=== PATIENT | female | born 1975 | race Caucasian/White ===

== ENCOUNTER 2019-05-30 08:37 | Emergency (ER) | payer SELFPAY ==
[2019-05-30 08:49] VITALS: BP 121/78
--- NOTE | 2019-05-30 09:07 | ED Physician Documentation ---
History of Present Illness - Stated complaint Stated Complaint: ACCIDENTAL OD/DIZZY NAUSEA - Chief complaint Chief Complaint: Neuro - History obtained from History obtained from: Patient - History of Present Illness Timing: Today, How many hours ago (1) Pain level max: 0 Pain level now: 0 Improved by: nothing Worsened by: nothing - Additonal information Additional information: States took 600mg gabapentin and 8mg of tizanidine this am, normally takes 300mg of gabapentin and 4 mg of tizanidine. Feels anxious now. Review of Systems Constitutional: denies: Fever, Chills Nose: denies: Rhinorrhea / runny nose, Congestion Respiratory: denies: Cough GI: denies: Nausea, Vomiting, Diarrhea : denies: Dysuria Skin: denies: Rash Musculoskeletal: denies: Neck pain, Back pain Neurologic: denies: Headache PD PAST MEDICAL HISTORY - Past Medical History Past Medical History: Yes Neuro: Migraines Psych: Anxiety Musculoskeletal: Fibromyalgia, Chronic back pain - Present Medications Home Medications: Ambulatory Orders Medication Instructions Recorded Confirmed Albuterol Sulfate [Proair 90 mcg IH 05/30/19 Respiclick] Cephalexin [Keflex] 500 mg PO 05/30/19 05/30/19 Hydrochlorothiazide 12.5 mg PO 05/30/19 Ketorolac [Toradol] 10 mg PO Q6H 05/30/19 05/30/19 Loratadine 10 mg PO 05/30/19 Omeprazole 10 mg PO 05/30/19 Potassium Chloride 8 meq PO 05/30/19 - Allergies Allergies/Adverse Reactions: Allergies Allergy/AdvReac Type Severity Reaction Status Date / Time eletriptan [From Relpax] Allergy Anaphylaxis Verified 05/30/19 08:49 nitrofurantoin Allergy Unknown Verified 05/30/19 08:49 [From Macrobid] Sulfa (Sulfonamide Allergy Unknown Verified 05/30/19 08:49 Antibiotics) sumatriptan [From Imitrex] Allergy Unknown Verified 05/30/19 08:49 - Social History Does the pt smoke?: No Smoking Status: Never smoker PD ED PE NORMAL - Vitals Vital signs reviewed: Yes - General General: Alert and oriented X 3, No acute distress - HEENT HEENT: Moist mucous membranes - Neck Neck: Supple, no meningeal sign - Cardiac Cardiac: RRR, Strong equal pulses - Respiratory Respiratory: No respiratory distress, Clear bilaterally - Abdomen Abdomen: Soft, Non tender, Non distended - Derm Derm: Warm and dry - Extremities Extremities: No edema - Neuro Neuro: Alert and oriented X 3, painter helper sign 2-12 intact, No motor deficit, No sensory deficit, Normal speech Results - Vitals Vitals: Vital Signs - 24 hr 05/30/19 08:47 Temperature 36 C L Heart Rate 62 Respiratory 18 Rate Blood Pressure 121/78 O2 Saturation 99 Oxygen O2 Source Room air PD MEDICAL DECISION MAKING - ED course Complexity details: reviewed results, re-evaluated patient, considered differ ential, d/w patient ED course: Monitored in the ED with no significant side effects. Will follow up with her PCP for further care. Non-toxic doses of both medications. Patient and family counseled regarding signs and symptoms for which I believe and urgent re- evaluation would be necessary. Patient with good understanding of and agreement to plan and is comfortable going home at this time This document was made in part using voice recognition software. While efforts are made to proofread this document, sound alike and grammatical errors may occur. Departure - Departure Disposition: 01 Home, Self Care Clinical Impression: Accidental overdose Qualifiers: Encounter type: initial encounter Qualified Code(s): T50.901A - Poisoning by unspecified drugs, medicaments and biological substances, accidental (unintentional), initial encounter Condition: Good Instructions: ED Overdose Accidental Follow-Up: your,doctor in 1 week [Other] Comments: Rest today. Return if you worsen. Follow-up with your doctor for further evaluation and care.
== END 2019-05-30 10:18 | disposition home or self-care (01) ==
LOC: ED 08:37
DX: T42.6X1A Poisoning by other antiepileptic and sedative-hypnotic drugs, accidental (unintentional), initial encounter (principal); T42.8X1A Poisoning by antiparkinsonism drugs and other central muscle-tone depressants, accidental (unintentional), initial encounter
CPT/HCPCS: 99284

== ENCOUNTER 2019-07-19 11:45 | Emergency (ER) | payer MEDICAID ==
--- NOTE | 2019-07-19 12:20 | ED Physician Documentation ---
PD HPI LOWER EXT INJURY - Stated complaint Stated Complaint: FOOT PX/LEG SWELLING - Chief complaint Chief Complaint: Ext Problem - History obtained from History obtained from: Patient - History of Present Illness PD HPI LOW EXT INJURY LOCATION: Left (44-year-old woman with history of remote gastric bypass, kidney stone causing chronic renal insufficiency. She does not know her baseline renal function. Recently moved to the area from [place]. She always has some asymmetric pedal edema that is worse at the end of the day, left greater than right. She does not know why they are asymmetric. She does take hydrochlorothiazide for same. Over the last 3 days or so, she is had increasing left leg pain and swelling that seems to be focused at the bottom of the foot and hurts if she flattens her foot, but she also notices it up the calf into the medial side of the distal left thigh. No significant shortness of breath but she does have a mild dry cough. No chest pain. No history of DVT or PE. No recent car/plane travel, but she does commute about an hour by car for work each day, each way.) Review of Systems Constitutional: denies: Fever, Chills Cardiac: denies: Chest pain / pressure, Palpitations Respiratory: reports: Cough GI: denies: Abdominal Pain, Nausea, Vomiting PD PAST MEDICAL HISTORY - Past Medical History Past Medical History: No Cardiovascular: None Respiratory: None Neuro: Migraines GI: None GEAR TESTER: None : Kidney stones HEENT: None Psych: Anxiety Musculoskeletal: Fibromyalgia, Chronic back pain Derm: None - Past Surgical History Past Surgical History: No - Present Medications Home Medications: Ambulatory Orders Medication Instructions Recorded Confirmed Albuterol Sulfate [Proair 90 mcg IH 05/30/19 Respiclick] Cephalexin [Keflex] 500 mg PO 05/30/19 05/30/19 Hydrochlorothiazide 12.5 mg PO 05/30/19 Ketorolac [Toradol] 10 mg PO Q6H 05/30/19 05/30/19 Loratadine 10 mg PO 05/30/19 Omeprazole 10 mg PO 05/30/19 Potassium Chloride 8 meq PO 05/30/19 Furosemide [Lasix] 20 mg PO DAILY PRN #10 tablet 07/19/19 Potassium Chloride 10 meq PO DAILY PRN #10 tablet.er 07/19/19 - Allergies Allergies/Adverse Reactions: Allergies Allergy/AdvReac Type Severity Reaction Status Date / Time eletriptan [From Relpax] Allergy Anaphylaxis Verified 07/19/19 11:56 nitrofurantoin Allergy Unknown Verified 07/19/19 11:56 [From Macrobid] Sulfa (Sulfonamide Allergy Unknown Verified 07/19/19 11:56 Antibiotics) sumatriptan [From Imitrex] Allergy Unknown Verified 07/19/19 11:56 - Social History Does the pt smoke?: No Smoking Status: Never smoker Does the pt drink ETOH?: Yes Does the pt have substance abuse?: No - Immunizations Immunizations are current?: Yes - POLST Patient has POLST: No PD ED PE NORMAL - Vitals Vital signs reviewed: Yes - General General: Alert and oriented X 3, No acute distress - Cardiac Cardiac: RRR, No murmur - Respiratory Respiratory: No respiratory distress, Clear bilaterally - Abdomen Abdomen: Non tender - Extremities Extremities: Other (Mild asymmetric pedal edema, left greater than right. There is very mild discoloration of the left leg and she is tender in the calf and medial distal hamstring. She also has tenderness at the bottom of the foot consistent with plantar fasciitis and pain with flattening of the arch, during which time I was careful to hold the calcaneus still such that it was not a Homans test.) - Neuro Neuro: Alert and oriented X 3, Normal speech Results - Vitals Vitals: Vital Signs - 24 hr 07/19/19 11:53 Temperature 36.4 C L Heart Rate 57 L Respiratory 20 Rate Blood Pressure 118/78 O2 Saturation 99 Oxygen O2 Source Room air - Labs Labs: Laboratory Tests 07/19/19 07/19/19 12:25 12:25 WBC 5.9 RBC 4.52 Hgb 13.8 Hct 42.6 MCV 94.2 MCH 30.5 MCHC 32.4 RDW 13.4 Plt Count 204 MPV 10.2 Neut # (Auto) 3.4 Lymph # (Auto) 1.7 [place] # (Auto) 0.4 Eos # (Auto) 0.3 Baso # (Auto) 0.0 Absolute Nucleated RBC 0.00 Nucleated RBC % 0.0 Sodium 138 Potassium 3.4 L Chloride 105 Carbon Dioxide 23 Anion Gap 10.0 BUN 16 Creatinine 0.7 Estimated GFR (MDRD) 91 Glucose 119 H Calcium 9.3 Total Bilirubin 0.6 AST 21 ALT 15 Alkaline Phosphatase 42 Total Protein 6.7 Albumin 4.0 Globulin 2.7 Albumin/Globulin Ratio 1.5 Lipase 32 PD MEDICAL DECISION MAKING - ED course ED course: She seems to have plantar fasciitis, but also a concern for DVT given the extent, we will do an ultrasound. We will check her renal function as well. Departure - Departure Disposition: Home, Self Care Clinical Impression: Left leg swelling, Plantar fasciitis of left foot Condition: Good Record reviewed to determine appropriate education?: Yes Instructions: ED Plantar Fasciitis, Plantar Fasciitis Tx Prescriptions: Furosemide [Lasix] 20 mg PO DAILY PRN #10 tablet PRN Reason: Swelling Potassium Chloride 10 meq PO DAILY PRN #10 tablet.er PRN Reason: take with furosemide Comments: Your renal function is actually excellent, for the swelling you can take furosemide as needed. On any day that you take the furosemide, you should also take potassium pill. Return for new or worsening symptoms, follow-up with your physician, next available appointment. There is no evidence of blood clot on the ultrasound.
[2019-07-19 12:36] LABS: BASOPHILS % (AUTO) 0.5 %; EOSINOPHILS # (AUTO) 0.3 10^3/uL (0.0-0.7); EOSINOPHILS % (AUTO) 5.3 %; HGB - HEMOGLOBIN 13.8 g/dL (12.0-16.0); LYMPHOCYTES # (AUTO) 1.7 10^3/uL (1.5-3.5); LYMPHOCYTES % (AUTO) 29.3 %; MEAN CORPUSCULAR HEMOGLOBIN 30.5 pg (27.0-31.0); MEAN CORPUSCULAR HGB CONC 32.4 g/dL (32.0-36.0); MEAN CORPUSCULAR VOLUME 94.2 fL (81.0-99.0); MEAN PLATELET VOLUME 10.2 fL (7.9-10.8); MONOCYTES # (AUTO) 0.4 10^3/uL (0.0-1.0); NEUTROPHILS # (AUTO) 3.4 10^3/uL (1.5-6.6); NEUTROPHILS % (AUTO) 57.6 %; PLT - PLATELET COUNT 204 10^3/uL (130-450); RED BLOOD COUNT 4.52 10^6/uL (4.20-5.40); RED CELL DISTRIBUTION WIDTH 13.4 % (12.0-15.0); WHITE BLOOD COUNT 5.9 x10^3/uL (4.8-10.8)
[2019-07-19 12:47] LABS: ALBUMIN/GLOBULIN RATIO 1.5 (1.0-2.2); BILIRUBIN,TOTAL 0.6 mg/dL (0.2-1.0); CALCIUM 9.3 mg/dL (8.5-10.3); CREATININE 0.7 mg/dL (0.4-1.0); TOTAL PROTEIN 6.7 g/dL (6.7-8.2)
--- NOTE | 2019-07-19 13:20 | Ultrasound Report ---
Reason: leg swelling Procedure Date: 07/19/2019 Accession Number: [id number] / [id number] Procedure: US - Duplex Ext Veins Left CPT Code: FULL RESULT: EXAM: LEFT LOWER EXTREMITY VENOUS ULTRASOUND EXAM DATE: 07/19/2019 12:19 PM. CLINICAL HISTORY: Leg swelling. COMPARISON: None. TECHNIQUE: Real-time sonographic vascular imaging was performed by the feeder tender through the lower extremity utilizing both color-flow and Doppler spectral analysis. Multiple real estate representative static images were saved for review. FINDINGS: Common Femoral Vein (CFV): Normal. CFV-GSV Junction: Normal. Profunda Femoral Vein (PFV): Normal. Femoral Vein (FV) Prox: Normal. Femoral Vein (FV) Mid: Normal. Femoral Vein (FV) Dist: Normal. Popliteal Vein: Normal. Posterior Tibial Veins: Normal. Peroneal Veins: Normal. Other: None. IMPRESSION: No evidence for deep venous thrombosis. RADIA
[2019-07-19 13:35] VITALS: BP 128/98
== END 2019-07-19 13:35 | disposition home or self-care (01) ==
LOC: ED 11:45
DX: R22.42 Localized swelling, mass and lump, left lower limb (principal); M72.2 Plantar fascial fibromatosis
CPT/HCPCS: 36415; 80053; 83690; 85025; 99284

== ENCOUNTER 2019-07-31 09:09 | Outpatient (CLI) | payer MEDICAID ==
[2019-07-31 18:38] LABS: BASOPHILS # (AUTO) 0.1 10^3/uL (0.0-0.1); BASOPHILS % (AUTO) 0.9 %; EOSINOPHILS # (AUTO) 0.5 10^3/uL (0.0-0.7); EOSINOPHILS % (AUTO) 8.8 %; HGB - HEMOGLOBIN 14.3 g/dL (12.0-16.0); LYMPHOCYTES # (AUTO) 1.7 10^3/uL (1.5-3.5); LYMPHOCYTES % (AUTO) 31.7 %; MEAN CORPUSCULAR HEMOGLOBIN 31.6 pg (27.0-31.0); MEAN CORPUSCULAR HGB CONC 32.4 g/dL (32.0-36.0); MEAN CORPUSCULAR VOLUME 97.6 fL (81.0-99.0); MEAN PLATELET VOLUME 10.8 fL (7.9-10.8); MONOCYTES # (AUTO) 0.5 10^3/uL (0.0-1.0); MONOCYTES % (AUTO) 9.2 %; NEUTROPHILS # (AUTO) 2.7 10^3/uL (1.5-6.6); PLT - PLATELET COUNT 235 10^3/uL (130-450); RED BLOOD COUNT 4.53 10^6/uL (4.20-5.40); RED CELL DISTRIBUTION WIDTH 13.6 % (12.0-15.0); WHITE BLOOD COUNT 5.4 x10^3/uL (4.8-10.8)
[2019-07-31 19:10] LABS: ALBUMIN 4.5 g/dL (3.2-5.5); ALBUMIN/GLOBULIN RATIO 1.7 (1.0-2.2); ALKALINE PHOSPHATASE 48 IU/L (42-121); ALT ALANINE AMINOTRANSFERASE 15 IU/L (10-60); AST ASPARTATE AMINOTRANSFERASE 18 IU/L (10-42); BILIRUBIN,TOTAL 0.8 mg/dL (0.2-1.0); BUN - BLOOD UREA NITROGEN 16 mg/dL (6-20); CALCIUM 9.9 mg/dL (8.5-10.3); CARBON DIOXIDE - CO2 26 mmol/L (21-32); CHLORIDE 107 mmol/L (101-111); CHOL/HDL RATIO 5.4 (<4.4); CHOLESTEROL 210 mg/dL; CREATININE 0.8 mg/dL (0.4-1.0); GFR - MDRD 78 (>89); GLUCOSE 103 mg/dL (70-100); HDL CHOLESTEROL 39 mg/dL; LDL CHOLESTEROL,CALCULATED 129 mg/dL; LDL/HDL RATIO 3.3 (<4.4); MAGNESIUM 2.1 mg/dL (1.7-2.8); SODIUM 142 mmol/L (135-145); TOTAL PROTEIN 7.2 g/dL (6.7-8.2); VLDL CHOLESTEROL 42 mg/dL
== END 2019-07-31 09:10 | disposition home or self-care (01) ==
LOC: LAB.S 09:09
PROVIDERS: ATTEND Internal Medicine
DX: Z00.00 Encounter for general adult medical examination without abnormal findings (principal); K91.2 Postsurgical malabsorption, not elsewhere classified
CPT/HCPCS: 36415; 80053; 80061; 82306; 82607; 83721; 83735; 84443; 85025

== ENCOUNTER 2019-08-09 14:50 | Outpatient (CLI) | payer MEDICAID ==
--- NOTE | 2019-08-10 11:52 | XRAY Report ---
Reason: PAIN IN LEFT ANKLE, M25.572 Procedure Date: 08/09/2019 Accession Number: [id number] / [id number] Procedure: XRS - Ankle 3 View LT CPT Code: FULL RESULT: EXAM: LEFT ANKLE RADIOGRAPHY EXAM DATE: 08/09/2019 02:59 PM. CLINICAL HISTORY: PAIN IN LEFT ANKLE, M25. 572. COMPARISON: None. TECHNIQUE: 3 views. FINDINGS: Bones: Normal. No fractures or bone lesions. Joints: Normal. No effusion. No subluxations. The ankle mortise is normally aligned. Soft Tissues: Normal. No soft tissue swelling. IMPRESSION: Normal ankle radiography. RADIA
== END 2019-08-09 14:51 | disposition home or self-care (01) ==
LOC: DI.S 14:50
PROVIDERS: ATTEND Internal Medicine
DX: M25.572 Pain in left ankle and joints of left foot (principal)

== ENCOUNTER 2019-08-29 08:00 | Outpatient (CLI) | payer MEDICAID ==
[2019-08-30 18:13] LABS: CANDIDA GROUP DNA NEGATIVE (NEGATIVE); CANDIDA KRUSEI DNA NEGATIVE (NEGATIVE); TRICHOMONAS VAGINALIS DNA NEGATIVE (NEGATIVE)
[2019-08-30 18:38] LABS: TRICHOMONAS VAGINALIS DNA NEGATIVE (NEGATIVE)
== END 2019-08-29 23:59 | disposition home or self-care (01) ==
LOC: LAB.R 08:00
PROVIDERS: ATTEND Obstetrics & Gynecology
DX: R10.2 Pelvic and perineal pain (principal)
CPT/HCPCS: 87491; 87591; 87661; 87801

== ENCOUNTER 2019-09-08 14:38 | Outpatient (CLI) | payer MEDICAID ==
[2019-09-08 15:29] LABS: HGB - HEMOGLOBIN 13.9 g/dL (12.0-16.0); MEAN CORPUSCULAR HEMOGLOBIN 31.5 pg (27.0-31.0); MEAN CORPUSCULAR VOLUME 98.4 fL (81.0-99.0); MEAN PLATELET VOLUME 10.5 fL (7.9-10.8); RED BLOOD COUNT 4.41 10^6/uL (4.20-5.40); RED CELL DISTRIBUTION WIDTH 12.9 % (12.0-15.0); WHITE BLOOD COUNT 5.7 x10^3/uL (4.8-10.8)
--- NOTE | 2019-09-08 17:10 | Ultrasound Report ---
Reason: ABDOMINAL ADHESIONS Procedure Date: 09/08/2019 Accession Number: [id number] / [id number] Procedure: US - Pelvic w/Transvaginal CPT Code: Final Report FULL RESULT: EXAM: PELVIC ULTRASOUND EXAM DATE: 09/08/2019 04:43 PM. CLINICAL HISTORY: ABDOMINAL ADHESIONS. 44-year-old female. 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 COMPARISON: None. TECHNIQUE: Realtime transabdominal pelvic scan performed to identify the uterus and adnexa and as an overview of other pelvic structures, followed by transvaginal scan to provide greater detail of the uterus and adnexa, with static image documentation. FINDINGS: Uterus: 7.3 x 3.6 x 4.5 cm, volume 62 cc. Anteverted position. Normal overall size and echotexture. There appears to be an Essure coil at the left uterine cornua. Masses: Fibroids: 1. 2.7 x 1.9 x 2.0 cm posterior lower uterine segment intramural. 2. 1.0 x 0.2 x 0.8 cm posterior mid to lower uterine segment submucosal without mass-effect. Endometrium: 3 mm. Normal. Cervix: Unremarkable. Right Ovary: 3.9 x 3.0 x 2.7 cm, volume 17 cc. Normal echotexture and blood flow. 2.7 x 1.5 x 1.7 cm dominant simple cyst/follicle. Essure coil is noted along the posterior aspect of the right ovary. Left Ovary: 3.0 x 1.7 x 2.2 cm, volume 5.8 cc. Normal echotexture and blood flow. 1.0 x 0.9 x 1.0 cm simple follicle. Free Fluid: Trace simple. Other: None. IMPRESSION: 1. Essure coil in the left uterine cornual region. 2. Apparent Essure coil in the right adnexa along the posterior aspect of the right ovary. 3. 2.7 x 1.5 x 1.7 cm dominant simple right ovarian cyst. 4. 2.7 cm and 1.0 cm posterior uterine fibroids. RADIA
[2019-09-08 17:24] LABS: FOLLICLE STIMULATING HORMONE 9.23 mIU/mL
[2019-09-08 17:25] LABS: LUTEINIZING HORMONE 3.87 mIU/mL
== END 2019-09-08 14:39 | disposition home or self-care (01) ==
LOC: DI 14:38
PROVIDERS: ATTEND Obstetrics & Gynecology
DX: N83.291 Other ovarian cyst, right side (principal); D25.0 Submucous leiomyoma of uterus; D25.1 Intramural leiomyoma of uterus; Z97.5 Presence of (intrauterine) contraceptive device; K66.0 Peritoneal adhesions (postprocedural) (postinfection)
CPT/HCPCS: 36415; 76830; 76856; 82670; 83001; 83002; 85027

== ENCOUNTER 2019-09-26 11:00 | Outpatient (CLI) | payer MEDICAID ==
[2019-09-26 11:39] LABS: BASOPHILS % (AUTO) 0.3 %; EOSINOPHILS # (AUTO) 0.1 10^3/uL (0.0-0.7); EOSINOPHILS % (AUTO) 0.7 %; LYMPHOCYTES % (AUTO) 14.1 %; MEAN CORPUSCULAR HEMOGLOBIN 31.8 pg (27.0-31.0); MEAN CORPUSCULAR HGB CONC 32.8 g/dL (32.0-36.0); MEAN PLATELET VOLUME 10.2 fL (7.9-10.8); MONOCYTES # (AUTO) 0.4 10^3/uL (0.0-1.0); MONOCYTES % (AUTO) 5.5 %; NEUTROPHILS # (AUTO) 5.8 10^3/uL (1.5-6.6); PLT - PLATELET COUNT 193 10^3/uL (130-450); RED CELL DISTRIBUTION WIDTH 12.7 % (12.0-15.0); WHITE BLOOD COUNT 7.3 x10^3/uL (4.8-10.8)
[2019-09-26 11:51] LABS: HCG UR QUAL NEGATIVE
[2019-09-26 11:57] LABS: ALBUMIN 4.4 g/dL (3.2-5.5); ALBUMIN/GLOBULIN RATIO 1.6 (1.0-2.2); BILIRUBIN,TOTAL 0.8 mg/dL (0.2-1.0); CALCIUM 9.3 mg/dL (8.5-10.3); CREATININE 0.9 mg/dL (0.4-1.0); TOTAL PROTEIN 7.2 g/dL (6.7-8.2)
== END 2019-09-26 11:01 | disposition home or self-care (01) ==
LOC: LAB 11:00
PROVIDERS: ATTEND Obstetrics & Gynecology
DX: Z01.812 Encounter for preprocedural laboratory examination (principal); K66.0 Peritoneal adhesions (postprocedural) (postinfection); R10.2 Pelvic and perineal pain; N83.8 Other noninflammatory disorders of ovary, fallopian tube and broad ligament
CPT/HCPCS: 36415; 80053; 81025; 85025; 86850; 86900; 86901

== ENCOUNTER 2019-09-27 10:54 | Day surgery (SDC) | payer MEDICAID ==
[~2019-09-27 10:54] MED LIST: CEFAZOLIN SODIUM IN 0.9 % NACL 2 GM/100 ML BAG IV ONE
[2019-09-27] MEDS ORDERED: NEOSTIGMINE 1 MG/1 ML 10 ML MDV IVP ONE (10:55)
[2019-09-27] MEDS ORDERED: METOCLOPRAMIDE 10 MG/2 ML VIAL IVP ONE (10:55)
[2019-09-27] MEDS ORDERED: MIDAZOLAM 2 MG/2 ML VIAL IVP ONE (10:55)
[2019-09-27] MEDS ORDERED: PROPOFOL 200 MG/20 ML VIAL IVP ONE (10:55)
[2019-09-27] MEDS ORDERED: GLYCOPYRROLATE 1 MG/5 ML VIAL IVP ONE (10:55)
[2019-09-27] MEDS ORDERED: fentaNYL 250 MCG/5 ML VIAL IVP ONE (10:55)
[2019-09-27] MEDS ORDERED: DEXAMETHASONE 4 MG/ML VIAL IVP ONE (10:55)
[2019-09-27] MEDS ORDERED: ROCURONIUM 50 MG/5 ML VIAL IVP ONE (10:55)
[2019-09-27] MEDS ORDERED: LACTATED RINGERS 1,000 ML IV ONE ×3 (10:58→16:42)
[2019-09-27] MEDS ORDERED: BUPIVACAINE 0.25% PF 30 ML VIAL ONE (11:49)
[2019-09-27] MEDS ORDERED: METHYLENE BLUE 0.5% 50 MG/10 ML AMPULE ONE (11:49)
--- NOTE | 2019-09-27 12:53 | ANESTHESIA ---
Pre-Anesthesia VS, & Labs - Diagnosis abdominal adhesions and pelvic pain - Procedure LAVH, right salpingoopherectomy, cystoscopy, left salpingectomy, lysis of adhesions Vital Signs: Temp Pulse Resp BP Pulse Ox 36.1 C L 66 12 134/84 H 99 09/27/19 10:58 09/27/19 10:58 09/27/19 10:58 09/27/19 10:58 09/27/19 10:58 Height 5 ft 2 in Weight (kg) 110 kg Body Mass Index 45.1 - NPO >8 hours - Is Patient ?: No Home Medications and Allergies Home Medications: Ambulatory Orders Apple Cider Vinegar 450 mg PO DAILY 09/26/19 Aspirin [Aspirin EC] 81 mg PO DAILY 09/26/19 Biotin 5,000 mcg PO DAILY 09/26/19 Butalb/Acetaminophen/Caffeine [Fioricet 50-300-40 mg Capsule] 1 - 2 each PO ONCE PRN 09/26/19 Calcium Citrate 1,000 mg PO DAILY 09/26/19 Cholecalciferol (Vitamin D3) [Vitamin D3] 2,000 unit PO DAILY 09/26/19 Cyanocobalamin (Vitamin B-12) [Vitamin B-12] 2,500 mcg SL DAILY 09/26/19 Duloxetine HCl 30 mg PO DAILY 09/26/19 Ferrous Sulfate 325 mg PO DAILY 09/26/19 Fluconazole 200 mg PO ONCE PRN 09/26/19 Gabapentin 300 mg PO BID 09/26/19 Magnesium Oxide [Magnesium] 500 mg PO DAILY 09/26/19 Melatonin 10 mg PO QPM 09/26/19 [place]-3/Dha/Epa/Fish Oil [Fish Oil 1,000 mg Softgel] 1 each PO DAILY 09/26/19 Phenazopyridine HCl 200 mg PO TID PRN 09/26/19 Prednisone 5 mg PO ONCE PRN 09/26/19 Tizanidine HCl 4 mg PO TID 09/26/19 Phenazopyridine HCl [Pyridium] 200 mg PO PRN PRN 09/27/19 cloNIDine [Catapres] 0.1 mg PO ONCE 09/27/19 Albuterol Sulfate [Proair Respiclick] 2 puffs IH Q4H PRN 05/30/19 Cephalexin [Keflex] 500 mg PO DAILY 05/30/19 Hydrochlorothiazide 25 mg PO BID 05/30/19 Ketorolac [Toradol] 10 mg PO Q6H PRN 05/30/19 Loratadine 10 mg PO DAILY 05/30/19 Omeprazole 40 mg PO DAILY 05/30/19 Apple Cider Vinegar 450 mg PO DAILY 09/26/19 Aspirin [Aspirin EC] 81 mg PO DAILY 09/26/19 Biotin 5,000 mcg PO DAILY 09/26/19 Butalb/Acetaminophen/Caffeine [Fioricet 50-300-40 mg Capsule] 1 - 2 each PO ONCE PRN 09/26/19 Calcium Citrate 1,000 mg PO DAILY 09/26/19 Cholecalciferol (Vitamin D3) [Vitamin D3] 2,000 unit PO DAILY 09/26/19 Cyanocobalamin (Vitamin B-12) [Vitamin B-12] 2,500 mcg SL DAILY 09/26/19 Duloxetine HCl 30 mg PO DAILY 09/26/19 Ferrous Sulfate 325 mg PO DAILY 09/26/19 Fluconazole 200 mg PO ONCE PRN 09/26/19 Gabapentin 300 mg PO BID 09/26/19 Magnesium Oxide [Magnesium] 500 mg PO DAILY 09/26/19 Melatonin 10 mg PO QPM 09/26/19 [place]-3/Dha/Epa/Fish Oil [Fish Oil 1,000 mg Softgel] 1 each PO DAILY 09/26/19 Phenazopyridine HCl 200 mg PO TID PRN 09/26/19 Prednisone 5 mg PO ONCE PRN 09/26/19 Tizanidine HCl 4 mg PO TID 09/26/19 Phenazopyridine HCl [Pyridium] 200 mg PO PRN PRN 09/27/19 cloNIDine [Catapres] 0.1 mg PO ONCE 09/27/19 Allergies/Adverse Reactions: Allergies Allergy/AdvReac Type Severity Reaction Status Date / Time buspirone Allergy Emesis, Verified 09/26/19 12:28 diarrhea eletriptan [From Relpax] Allergy Anaphylaxis Verified 07/19/19 11:56 nitrofurantoin Allergy Itching Verified 09/26/19 12:28 [From Macrobid] Sulfa (Sulfonamide Allergy Itching Verified 09/26/19 12:28 Antibiotics) sulfamethoxazole Allergy Itching Verified 09/26/19 12:28 [From Bactrim] sumatriptan [From Imitrex] Allergy Anaphylaxis Verified 09/26/19 12:28 trimethoprim [From Bactrim] Allergy Itching Verified 09/26/19 12:28 Anes History & Medical History - Anesthetic History Anesthesia Complications: reports: No previous complications - Medical History Cardiovascular: reports: None Pulmonary: reports: Sleep apnea (Untreated) Gastrointestinal: reports: GERD (controlled with medication), Other (lynn en y gastric bypass Morbid obesity, BMI 44) Urinary: reports: Kidney stones Neuro: reports: Migraines Musculoskeletal: reports: Fibromyalgia, Chronic back pain, Other (States she has herniated disks in neck. Has numbness in left arm.) Endocrine/Autoimmune: reports: None Blood Disorders: reports: None Skin: reports: None Smoking Status: Former smoker Psychosocial: reports: Anxiety - Surgical History General: Cholecystectomy, Gastric surgery Eyes Ears Nose Throat (EENT): Tonsil/Adenoidectomy Gynecologic: Endometrial ablation Exam General: Alert, Oriented x3, Cooperative, No acute distress Dental: WNL Mouth Openin Fingerbreadth Neck Mobility: Normal Mallampati classification: I Thyromental Distance: 4-6 cm Respiratory: Lungs clear, Normal breath sounds, No respiratory distress, No accessory muscle use Cardiovascular: Regular rate, Normal S1, Normal S2, No murmurs Mental/Cognitive Status: Alert/Oriented X3, Normal for patient Plan Anesthesia Type: General Consent for Procedure(s) Verified and Reviewed: Yes Code Status: Attempt Resuscitation ASA classification: 3-Severe systemic disease Is this case an emergency?: No
[2019-09-27] MEDS ORDERED: LIDOCAINE 1%-EPI 1:100000 20 ML MDV ONE (14:01)
[2019-09-27] MEDS ORDERED: LIDOCAINE 2%-EPI 1:100000 20 ML MDV SUBQ ONE ×2 (14:05)
[2019-09-27] MEDS ORDERED: BUPIVACAINE 0.5% PF 30 ML VIAL INFIL ONE ×2 (14:05)
[2019-09-27] MEDS ORDERED: LIDOCAINE MPF 2%-EPI 1:200000 20 ML VIAL ONE (14:06)
[2019-09-27] MEDS ORDERED: ONDANSETRON 4 MG/2 ML VIAL IVP PRN (16:37)
--- NOTE | 2019-09-27 16:41 | OPERATIVE REPORT ---
Operative Report - General Planned Procedure: LAVH/TLH with RSO, LS cysto Pre-Op Diagnosis: Pelvic pain suspect right Essure migration. 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
[2019-09-27] MEDS ORDERED: KETOROLAC 15 MG/ML VIAL IVP PRN (16:46)
[2019-09-27] MEDS: HYDROmorphone 1 MG/ML CARPUJECT ONE ×2 (16:50→16:55)
[2019-09-27] MEDS ORDERED: HYDROmorphone 1 MG/ML CARPUJECT ONE (17:00)
[2019-09-27] MEDS: HYDROmorphone 1 MG/ML CARPUJECT IVP PRN ×3 (17:04→23:11)
[2019-09-27] MEDS: oxyCODONE 5 MG TABLET PO PRN ×2 (18:19→23:11)
[2019-09-27] MEDS ORDERED: SODIUM CHLORIDE FLUSH 0.9% 10 ML SYRINGE ONE ×2 (20:10→23:07)
--- NOTE | 2019-09-28 02:16 | OPERATIVE REPORT ---
DATE OF SERVICE: 09/27/2019 Physician: Ivan Townsend MD PREOPERATIVE DIAGNOSIS: Pelvic pain, suspected migration of the right Essure. POSTOPERATIVE DIAGNOSES: Pelvic pain, pelvic sidewall endometriosis, normal placement of Essure bilaterally. PROCEDURE: Total laparoscopic hysterectomy with left salpingectomy, right salpingo-oophorectomy and cystoscopy. ANESTHESIA: General via endotracheal tube anesthesia. SURGEON: Ivan Townsend MD NIGHT CLERK AUDITOR: Johnie Kong DO. ANESTHESIA PROVIDER: Violeta Alvarenga CRNA. ESTIMATED BLOOD LOSS: 25 mL IV FLUIDS: 1700 mL URINE OUTPUT: 200 mL FINDINGS: Upon entering the abdominal cavity, there was evidence of some moderate adhesions in the upper abdominal cavity, but not in the lower abdominal cavity or pelvis. The tubes and ovaries bilaterally were normal in appearance. There was no evidence of any protrusions out of the right adnexa. There was a small bleb on the right pelvic brim over the uterine vessels as well as the ureter. This was left in place to decrease the risk of injury to these structures. Upon entering the specimen on the back field, there was evidence of adhesions. There was also what appeared to be Essure devices in both fallopian tubes. These were left in situ for the pathologist to document their location. PROCEDURE: Following adequate endotracheal anesthesia, the patient was placed in the dorsal lithotomy position in Gilles stirrups. She was then prepped and draped in the usual fashion. A timeout was then performed, at which time the concerns were noted; the concerns about adhesions from her previous laparoscopic surgery as well as the possibility in the pelvis from her suspected Essure migration. The procedure was then commenced. A speculum was placed in the vagina. The cervix was visualized, grasped with a single-tooth tenaculum. At this point, a large VCare was placed into the vagina and placed deep into the fornix. The cervix previously had been dilated up to a size 7 mm and was only sounded to 6 cm. This was secondary to previous ablation. The electric car operator's gloves were then changed and then an incision made subumbilical because of the concerns of adhesions in the abdominal cavity. This was carried down to the fascia. The fascia was grasped with Mandie clamps, divided with Mcnally scissors. This was carried all the way to the peritoneal cavity. It was entered. A single digit was used to palpate inside the peritoneal cavity. There was no evidence of any bowel or omentum adhered at this time. A Zoila trocar was then placed and distal balloon was inflated. A laparoscope was introduced, and there was evidence of good placement. Two additional ports were placed, both in the left and right lower abdomen. This was done following local anesthesia with 0.25% Marcaine with 1% lidocaine with epinephrine and a skin incision with a #15 blade. Both were placed under direct visualization. The laparoscope was introduced and there was no evidence of any pelvic adhesions. The pelvis was inspected in its entirety. The left ovary appeared to be nodular, which is compatible with her chronologic age. The right tube and ovary did not show any excessive adhesions. The posterior leaf of the broad ligament on the right hand side showed some endometriosis. There was a bleb over the right common iliac. This was at the location of the ureter. This was considered close proximity and concerns were raised about entering this and damaging the vessels below. At this time, the hysterectomy was commenced. The right infundibulopelvic ligament was triply cauterized and transected. The mesovarium was then cauterized and transected with the LigaSure. This was carried down to the round ligament, which was doubly cauterized and transected. The anterior leaf of the broad ligament was then carried across the uterus down to the lower uterine segment and then traversed across the lower uterine segment to dissect the bladder off this area. The posterior leaf of the broad ligament was cauterized and transected and this was carried all the way down to the internal os of the cervix. The left fallopian tube was then operated on by Dr. Kong; he transected the mesovarium all the way to the cornu. Care was taken to avoid any injury to the vascular supply to the ovary. Upon reaching the cornu, the round ligament was doubly cauterized and transected with the LigaSure as well as the uteroovarian ligament. The anterior leaf of the broad ligament was then cauterized and transected with the LigaSure by Dr. Kong until it came down to the level of the internal os of the cervix. The posterior leaf was also cauterized and transected. At this point, the bladder flap was initially developed. The uterine vessels on the left hand side were visualized, doubly cauterized and transected with LigaSure. At this point, the right side was addressed with Dr. Giem he dissected the broad ligament off the lower uterine segment as well as the posterior area of the uterine vessels were then visualized, doubly cauterized and transected. At this point, the large cup from the VCare device was palpated with a grasper. The Harmonic scalpel was then used to amputate the cervix from the apex of the vagina. There was evidence of good hemostasis upon completion of this. The apex of the vagina was then closed utilizing the Endo Stitch with 0 V-Loc suture. This showed good care was taken to obtain good bites to decrease the risk of any incision dehiscence. The area was inspected. There was evidence of good hemostasis. At this point, the right and left lower quadrant trocars were removed. These were followed with laparoscope. There was no evidence of bleeding from these sites. The Zoila was then removed from the umbilicus and the CO2 was allowed to escape. The fascia was closed utilizing 0 Vicryl on a UR-6. At this point, the incisions were closed by Dr. Kong with 4-0 Monocryl. A cystoscopy was performed and there was evidence of excellent flow from both ureteral orifices. The patient tolerated the procedure well and was taken to recovery in stable condition. Sponge and needle counts were correct. TD: 09/27/2019 17:02 XU
[2019-09-28] MEDS: diphenhydrAMINE 25 MG CAPSULE PO PRN ×2 (02:24→08:36)
[2019-09-28] MEDS ORDERED: SODIUM CHLORIDE FLUSH 0.9% 10 ML SYRINGE ONE ×2 (02:32→06:10)
[2019-09-28] MEDS: HYDROmorphone 1 MG/ML CARPUJECT IVP PRN ×3 (02:35→08:37)
[2019-09-28] MEDS ORDERED: BENZOCAINE/MENTHOL LOZENGE MM PRN (05:46)
[2019-09-28] MEDS: oxyCODONE 5 MG TABLET PO PRN ×2 (06:17→10:12)
[2019-09-28 07:51] VITALS: BP 108/57
--- NOTE | 2019-09-28 08:28 | PROVIDER PROGRESS NOTE ---
Subjective - General Procedure Date: 09/27/19 Post Op Days: 1 Procedure Performed: TLH RSO, LS, cysto - Review of Systems Wound/Incisions: positive: Healing well, Dressing dry and intact General: positive: No symptoms (Pain 6/10 itching with Oxy) Cardiovascular: positive: No symptoms Gastrointestinal: positive: No symptoms Genitourinary: positive: No symptoms Skin: positive: Puritis Objective - Patient Data Reviewed Vital Signs: Yes Vital Signs: Vital Signs x48h Temp Pulse Resp BP Pulse Ox 09/28/19 07:35 36.5 C 56 L 18 108/57 L 97 09/28/19 06:00 55 L 117/55 L 99 09/28/19 04:00 36.5 C 50 L 18 94/51 L 96 Weight: Weight 09/26/19 09/27/19 09/28/19 23:59 23:59 23:59 Weight (kg) 110 kg Intake & Output: Intake and Output Totals x24h 09/26/19 09/27/19 09/28/19 23:59 23:59 23:59 Intake Total 1700 Output Total 325 Balance 1375 - Current Medications Current Medications: Current Medications Generic Name Dose Route Start Last Admin Trade Name Freq PRN Reason Stop Dose Admin Diphenhydramine HCl 25 mg 09/28/19 01:52 09/28/19 02:24 Benadryl PO 25 mg QPM PRN Administration ITCHING Hydromorphone HCl 1 mg 09/27/19 17:00 09/28/19 06:20 Dilaudid Inj Carp IVP 1 mg Q2H PRN Administration PAIN Ketorolac Tromethamine 30 mg 09/27/19 16:46 09/28/19 02:25 Toradol Inj (15mg) IVP 10/02/19 16:45 30 mg Q6HR PRN Administration PAIN Oxycodone HCl 5 mg 09/27/19 16:37 09/28/19 06:17 Roxicodone PO 5 mg Q4HR PRN Administration PAIN - Physical Exam Wound/Incisions: positive: Healing well General Appearance: positive: No acute distress, Mild distress Respiratory: positive: Chest non-tender, No respiratory distress, Breath sounds nml Cardiovascular: positive: Regular rate & rhythm, No murmur, No gallop Abdomen: positive: Nml bowel sounds Back: negative: CVA tenderness (R), CVA tenderness (L) Skin: positive: Color nml, No rash, Warm, Dry Impression/Plan - Problem List Problem List: POD #1 progressing pt wants to go home. Home Meds: Oxycodone 5 mg Motrin 800 mg, home supply Benadryl 25 mg, home supply RTC one-two week.
== END 2019-09-28 10:00 | disposition home or self-care (01) ==
LOC: SDS 10:54 → MS2 18:07 → SDS 09-28 10:00
PROVIDERS: ATTEND Obstetrics & Gynecology
PROC: 0UT04ZZ Resection of Right Ovary, Percutaneous Endoscopic Approach (ICD-10-PCS; 2019-09-27)
PROC: 0UT74ZZ Resection of Bilateral Fallopian Tubes, Percutaneous Endoscopic Approach (ICD-10-PCS; 2019-09-27)
PROC: 0UT94ZZ Resection of Uterus, Percutaneous Endoscopic Approach (ICD-10-PCS; principal; 2019-09-27 13:00)
DX: N80.3 Endometriosis of pelvic peritoneum (principal); D25.1 Intramural leiomyoma of uterus; N83.201 Unspecified ovarian cyst, right side; K66.0 Peritoneal adhesions (postprocedural) (postinfection); G47.30 Sleep apnea, unspecified; E66.01 Morbid (severe) obesity due to excess calories; Z68.41 Body mass index [BMI] 40.0-44.9, adult; D64.9 Anemia, unspecified; D89.89 Other specified disorders involving the immune mechanism, not elsewhere classified; M79.7 Fibromyalgia; G89.29 Other chronic pain; M54.9 Dorsalgia, unspecified; F41.9 Anxiety disorder, unspecified; K21.9 Gastro-esophageal reflux disease without esophagitis; M19.90 Unspecified osteoarthritis, unspecified site; Z98.84 Bariatric surgery status; Z79.51 Long term (current) use of inhaled steroids; Z79.52 Long term (current) use of systemic steroids; Z79.82 Long term (current) use of aspirin; Z87.891 Personal history of nicotine dependence; Z87.440 Personal history of urinary (tract) infections; Z87.11 Personal history of peptic ulcer disease
CPT/HCPCS: 58571; A9270; J0690; J1170; J2765; J3010; J7120

== ENCOUNTER 2019-09-29 23:39 | Emergency (ER) | payer MEDICAID ==
[2019-09-30 00:04] LABS: BASOPHILS % (AUTO) 0.4 %; EOSINOPHILS # (AUTO) 0.2 10^3/uL (0.0-0.7); EOSINOPHILS % (AUTO) 2.7 %; LYMPHOCYTES # (AUTO) 1.3 10^3/uL (1.5-3.5); LYMPHOCYTES % (AUTO) 16.1 %; MEAN CORPUSCULAR HEMOGLOBIN 31.6 pg (27.0-31.0); MEAN CORPUSCULAR HGB CONC 32.1 g/dL (32.0-36.0); MEAN CORPUSCULAR VOLUME 98.4 fL (81.0-99.0); MEAN PLATELET VOLUME 10.4 fL (7.9-10.8); MONOCYTES # (AUTO) 0.6 10^3/uL (0.0-1.0); MONOCYTES % (AUTO) 7.2 %; NEUTROPHILS # (AUTO) 5.7 10^3/uL (1.5-6.6); NEUTROPHILS % (AUTO) 73.2 %; PLT - PLATELET COUNT 157 10^3/uL (130-450); WHITE BLOOD COUNT 7.7 x10^3/uL (4.8-10.8)
[2019-09-30 00:20] LABS: ALBUMIN 3.7 g/dL (3.2-5.5); ALBUMIN/GLOBULIN RATIO 1.3 (1.0-2.2); BILIRUBIN,TOTAL 0.5 mg/dL (0.2-1.0); CALCIUM 8.9 mg/dL (8.5-10.3); CREATININE 0.8 mg/dL (0.4-1.0); TOTAL PROTEIN 6.6 g/dL (6.7-8.2)
[2019-09-30] MEDS ORDERED: ONDANSETRON 4 MG/2 ML VIAL IVP STA (00:25)
[2019-09-30] MEDS ORDERED: HYDROmorphone 1 MG/ML CARPUJECT IVP STA ×2 (00:25→04:12)
[2019-09-30] MEDS ORDERED: SODIUM CHLORIDE 0.9% 1,000 ML IV ONE (00:25)
--- NOTE | 2019-09-30 00:26 | ED Physician Documentation ---
PD HPI ABD PAIN - Stated complaint Stated Complaint: FEVER/ POST OPERATION PX - Chief complaint Chief Complaint: Fever - History obtained from History obtained from: Patient - History of Present Illness Timing - onset: Today Timing - duration: Hours (1) Timing - details: Abrupt onset Quality: Pain Location: RLQ, Suprapubic Radiation: No: Chest, , Lower back, Left flank, Left shoulder, Other, Right flank, Right shoulder, Upper back Worsened by: Moving Associated symptoms: Fever (101.9), Dysuria. No: Nausea, Vomiting, Diarrhea, Constipation, Chest pain, Near syncope / syncope, Loss of appetite Recently seen: Surgery - Additional information Additional information: Is a 44-year-old woman who presents with her boyfriend complaints that 2 days ago she had a laparoscopic hysterectomy. She was discharged from the hospital yesterday and seemed to be doing fairly well. Tonight her family touched her and thought that she felt hot so they checked her temperature was 101.9 approximately 45 minutes ago. She took 800 mg of Motrin at that time and has also used her narcotic pain reliever at home. She says she is coughing bringing up brown mucus feels a little short of breath but that improves with coughing. She does have a history of using inhalers in the past. She is having pain in her lower abdomen but that is about the same as she has had since the surgery but now she feels a "pulling" sensation that was not there when she went home. She has not had nausea or vomiting in fact was eating and drinking today. She is passing gas but has not had a bowel movement yet. She noticed slight oozing from the umbilical trocar site. Is had minimal vaginal bleeding before leaving the hospital. She is felt very fatigued today. Denies pain radiating down into her legs. Complains of pressure to urinate. No sore throat. Review of Systems Constitutional: reports: Fever Nose: denies: Congestion Throat: denies: Sore throat Respiratory: reports: Dyspnea, Cough GI: reports: Abdominal Pain. denies: Nausea, Vomiting, Diarrhea : reports: Dysuria, Vaginal bleeding, Hysterectomy. denies: Now EGA Skin: reports: Other (Trocar sites without redness or swelling). denies: Rash Neurologic: reports: Generalized weakness. 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 Has numbness in left arm.) Derm: None - Past Surgical History Past Surgical History: No - Present Medications Home Medications: Ambulatory Orders Medication Instructions Recorded Confirmed Albuterol Sulfate [Proair 2 puffs IH Q4H PRN 05/30/19 09/27/19 Respiclick] Cephalexin [Keflex] 500 mg PO DAILY 05/30/19 09/27/19 Hydrochlorothiazide 25 mg PO BID 05/30/19 09/27/19 Ketorolac [Toradol] 10 mg PO Q6H PRN 05/30/19 09/27/19 Loratadine 10 mg PO DAILY 05/30/19 09/27/19 Omeprazole 40 mg PO DAILY 05/30/19 09/27/19 Potassium Chloride 10 meq PO DAILY PRN #10 tablet.er 07/19/19 09/27/19 Apple Cider Vinegar 450 mg PO DAILY 09/26/19 Aspirin [Aspirin EC] 81 mg PO DAILY 09/26/19 09/27/19 Biotin 5,000 mcg PO DAILY 09/26/19 09/27/19 Butalb/Acetaminophen/Caffeine 1 - 2 each PO ONCE PRN 09/26/19 09/27/19 [Fioricet 50-300-40 mg Capsule] Calcium Citrate 1,000 mg PO DAILY 09/26/19 09/27/19 Cholecalciferol (Vitamin D3) 2,000 unit PO DAILY 09/26/19 09/27/19 [Vitamin D3] Cyanocobalamin (Vitamin B-12) 2,500 mcg SL DAILY 09/26/19 09/26/19 [Vitamin B-12] Duloxetine HCl 30 mg PO DAILY 09/26/19 09/27/19 Ferrous Sulfate 325 mg PO DAILY 09/26/19 09/27/19 Fluconazole 200 mg PO ONCE PRN 09/26/19 09/27/19 Gabapentin 300 mg PO BID 09/26/19 09/27/19 Magnesium Oxide [Magnesium] 500 mg PO DAILY 09/26/19 09/27/19 Melatonin 10 mg PO QPM 09/26/19 09/26/19 [place]-3/Dha/Epa/Fish Oil [Fish Oil 1 each PO DAILY 09/26/19 09/27/19 1,000 mg Softgel] Phenazopyridine HCl 200 mg PO TID PRN 09/26/19 09/26/19 Prednisone 5 mg PO ONCE PRN 09/26/19 09/27/19 Tizanidine HCl 4 mg PO TID 09/26/19 09/27/19 Phenazopyridine HCl [Pyridium] 200 mg PO PRN PRN 09/27/19 09/27/19 cloNIDine [Catapres] 0.1 mg PO ONCE 09/27/19 09/27/19 Amox/Clav 875/125 [Augmentin] 1 each PO Q12H #20 tablet 09/30/19 Azithromycin [Zithromax] 250 mg PO DAILY #6 tablet 09/30/19 Oxycodone HCl/Acetaminophen 1 - 2 each PO Q6H PRN #10 tablet 09/30/19 [Percocet 5-325 mg Tablet] - Allergies Allergies/Adverse Reactions: Allergies Allergy/AdvReac Type Severity Reaction Status Date / Time buspirone Allergy Emesis, Verified 09/29/19 23:54 diarrhea eletriptan [From Relpax] Allergy Anaphylaxis Verified 09/29/19 23:54 nitrofurantoin Allergy Itching Verified 09/29/19 23:54 [From Macrobid] Sulfa (Sulfonamide Allergy Itching Verified 09/29/19 23:54 Antibiotics) sulfamethoxazole Allergy Itching Verified 09/29/19 23:54 [From Bactrim] sumatriptan [From Imitrex] Allergy Anaphylaxis Verified 09/29/19 23:54 trimethoprim [From Bactrim] Allergy Itching Verified 09/29/19 23:54 - Social History Does the pt smoke?: No Smoking Status: Former smoker Does the pt drink ETOH?: Yes Does the pt have substance abuse?: No - Immunizations Immunizations are current?: Yes - POLST Patient has POLST: No PD ED PE NORMAL - Vitals Vital signs reviewed: Yes - General General: Alert and oriented X 3, Well developed/nourished, Other (Obese 44-year-old woman She appears uncomfortable) - HEENT HEENT: Atraumatic, PERRL, Other (Mucous membranes are dry. No erythema or exudate.) - Cardiac Cardiac: RRR, No murmur, Strong equal pulses - Respiratory Respiratory: No respiratory distress, Clear bilaterally - Abdomen Abdomen: Normal bowel sounds, Soft, Other (There is tenderness in the right lower quadrant with guarding. The trocar sites are covered with Dermabond and no erythema or swelling around them. No active drainage.) - Derm Derm: Other (Skin on the lower abdomen is a little mottled appearing.) - Extremities Extremities: Other (Her left foot is in a walking boot from a fracture 3 months ago. 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, No motor deficit, No sensory deficit, Normal speech Results - Vitals Vitals: Vital Signs - 24 hr 09/29/19 09/29/19 09/30/19 23:45 23:50 01:23 Temperature 37.6 C H 37.4 C Heart Rate 79 69 60 Respiratory 20 17 15 Rate Blood Pressure 132/63 H 108/58 L 93/40 L O2 Saturation 96 98 97 09/30/19 09/30/19 09/30/19 01:54 03:11 04:14 Temperature 36.9 C 36.9 C Heart Rate 60 57 L Respiratory 12 16 Rate Blood Pressure 95/50 L 101/58 L O2 Saturation 97 96 09/30/19 09/30/19 09/30/19 04:19 05:25 05:56 Temperature 37.2 C Heart Rate 60 54 L 60 Respiratory 17 15 15 Rate Blood Pressure 105/60 105/53 L 110/57 L O2 Saturation 100 96 100 Oxygen O2 Source Room air - Labs Labs: Laboratory Tests 09/29/19 09/29/19 09/29/19 23:57 23:57 23:57 WBC 7.7 RBC 3.80 L Hgb 12.0 Hct 37.4 MCV 98.4 MCH 31.6 H MCHC 32.1 RDW 13.0 Plt Count 157 MPV 10.4 Neut # (Auto) 5.7 Lymph # (Auto) 1.3 L [place] # (Auto) 0.6 Eos # (Auto) 0.2 Baso # (Auto) 0.0 Absolute Nucleated RBC 0.00 Nucleated RBC % 0.0 ESR Sodium 140 Potassium 3.3 L Chloride 106 Carbon Dioxide 25 Anion Gap 9.0 BUN 9 Creatinine 0.8 Estimated GFR (MDRD) 78 L Glucose 119 H Lactic Acid 2.1 Calcium 8.9 Total Bilirubin 0.5 AST 24 ALT 19 Alkaline Phosphatase 50 C-Reactive Protein Total Protein 6.6 L Albumin 3.7 Globulin 2.9 Albumin/Globulin Ratio 1.3 Lipase 29 Urine Color Urine Clarity Urine pH Ur Specific [place] Urine Protein Urine Glucose (UA) Urine Ketones Urine Occult Blood Urine Nitrite Urine Bilirubin Urine Urobilinogen Ur Leukocyte Esterase Urine RBC Urine WBC Ur Squamous Epith Cells Urine Bacteria Urine Casts Ur Microscopic Review Urine Culture Comments 09/30/19 09/30/19 09/30/19 00:59 23:57 23:57 WBC RBC Hgb Hct MCV MCH MCHC RDW Plt Count MPV Neut # (Auto) Lymph # (Auto) [place] # (Auto) Eos # (Auto) Baso # (Auto) Absolute Nucleated RBC Nucleated RBC % ESR 20 Sodium Potassium Chloride Carbon Dioxide Anion Gap BUN Creatinine Estimated GFR (MDRD) Glucose Lactic Acid Calcium Total Bilirubin AST ALT Alkaline Phosphatase C-Reactive Protein 7.7 H Total Protein Albumin Globulin Albumin/Globulin Ratio Lipase Urine Color YELLOW Urine Clarity CLEAR Urine pH 5.5 Ur Specific [place] 1.025 Urine Protein NEGATIVE Urine Glucose (UA) NEGATIVE Urine Ketones NEGATIVE Urine Occult Blood SMALL H Urine Nitrite NEGATIVE Urine Bilirubin NEGATIVE Urine Urobilinogen 0.2 (NORMAL) Ur Leukocyte Esterase TRACE H Urine RBC 0-5 Urine WBC 4-5 Ur Squamous Epith Cells MOD Squamous H Urine Bacteria Rare Urine Casts 0-2 Hyaline Casts Ur Microscopic Review INDICATED Urine Culture Comments NOT INDICATED - Rads (name of study) CT abd/pelvis Radiology: See rad report (Patchy infiltrates LLL and lingula; no abscess; bowel wall thinning and air fluid levels in bowel at prior adrianna-en-y) PD MEDICAL DECISION MAKING - ED course Complexity details: reviewed old records, reviewed results, d/w patient, d/w family ED course: Patient had a liter of fluids and a milligram of Dilaudid. Her blood pressure dropped into the 90 systolic after the Dilaudid but responded to the fluids. White blood cell count is normal. Her CRP is quite elevated at 7.7 but she is postsurgical. CMP is normal and urinalysis is contaminated but no definite infection. CT of the abdomen and pelvis did not show any abscess. There is some patchy infiltrates in the left lower lobe. There is some delayed dictation of a segment of bowel with an air-fluid level in it at the area of the prior Adrianna-en-Y. 0546: I discussed case with Dr. Kong. Based on the CT report he requested consultation with the surgeon and I spoke with Dr. Mckeon. Dr. Mckeon felt that the air-fluid level at the Adrianna-en-Y was probably not significant in this setting. Dr. oKng will come in and evaluate the patient to determine final disposition. Patient does have patchy infiltrates on the CT scan and her left lower lobe so will cover with Rocephin and Zithromax IV. 0625: Dr Kong did come to the department and evaluated patient. Did not feel that there was an acute abdomen. Will treat pneumonia as an outpatient with Augmentin and Zithromax. The plan was discussed with the patient and her and she is states understanding. She did request a prescription for a few more Percocet tablets as she is using them every 3-4 hours and is afraid that she will run out before the weekend is up. Departure - Departure Disposition: 01 Home, Self Care Clinical Impression: Fever Qualifiers: Fever type: unspecified Qualified Code(s): R50.9 - Fever, unspecified Pneumonia Qualifiers: Pneumonia type: due to unspecified organism Laterality: left Lung location: lower lobe of lung Qualified Code(s): J18.9 - Pneumonia, unspecified organism Abdominal pain Qualifiers: Abdominal location: lower abdomen, unspecified Qualified Code(s): R10.30 - Lower abdominal pain, unspecified Condition: Good Instructions: ED Pneumonia Adult Follow-Up: Jacinto Quezada MD [Primary Care Provider] - Ivan Townsend MD [Provider Admit Priv/Credential] - Prescriptions: Amox/Clav 875/125 [Augmentin] 1 each PO Q12H #20 tablet Azithromycin [Zithromax] 250 mg PO DAILY #6 tablet Oxycodone HCl/Acetaminophen [Percocet 5-325 mg Tablet] 1 - 2 each PO Q6H PRN #10 tablet PRN Reason: pain Comments: Take the Zithromax and Augmentin as prescribed. Stop the Keflex while you are taking the Augmentin. Use your inhaler if you are feeling short of breath. Take Percocet if needed for pain. Follow-up with your primary care provider next week if you are still coughing and not feeling any better for reevaluation. Return to the emergency department if you have increasing abdominal pain, vomiting and cannot keep anything down or other problems arise.
[2019-09-30] MEDS ORDERED: IOVERSOL 320 100 ML VIAL IVP ONE ×2 (00:42→01:26)
[2019-09-30 01:02] LABS: BILIRUBIN,URINE NEGATIVE (NEGATIVE); CLARITY,URINE CLEAR (CLEAR); GLUCOSE, URINE (UA) NEGATIVE (NEGATIVE); KETONES,URINE (UA) NEGATIVE (NEGATIVE); LEUKOCYTE ESTERASE, URINE TRACE (NEGATIVE); NITRITE,URINE NEGATIVE (NEGATIVE); OCCULT BLOOD,URINE SMALL (NEGATIVE); PH,URINE 5.5 PH (5.0-7.5); PROTEIN,URINE NEGATIVE (NEGATIVE); UROBILINOGEN,URINE 0.2 (NORMAL) E.U./dL (NORMAL)
[2019-09-30 01:16] LABS: BACTERIA,URINE Rare /HPF (None Seen); CASTS, URINE 0-2 Hyaline Casts /LPF; RBC,URINE 0-5 /HPF (0-5); SQUAMOUS EPITHELIAL CELL,UR MOD Squamous (<= Few)
--- NOTE | 2019-09-30 02:33 | CT Report ---
Reason: Abdominal pain w/ fever Procedure Date: 09/30/2019 Accession Number: [id number] / [id number] Procedure: CT - Abdomen/Pelvis W CPT Code: Final Report FULL RESULT: EXAM: CT ABDOMEN AND PELVIS EXAM DATE: 09/30/2019 01:24 AM. CLINICAL HISTORY: Abdominal pain w/ fever. Hysterectomy and right oophorectomy 2 days ago. COMPARISONS: None. TECHNIQUE: Routine helical CT imaging was performed through the abdomen and pelvis. IV contrast: 100 ML OPTIRAY 320. Enteric contrast: No. Reconstructions: Coronal and sagittal. In accordance with CT protocol optimization, one or more of the following dose reduction techniques were utilized for this exam: automated exposure control, adjustment of mA and/or KV based on patient size, or use of iterative reconstructive technique. FINDINGS: Areas of atelectasis are seen in the lingula and left lower lobe. Dependent atelectasis is present bilaterally. A 1.3 cm cardiophrenic lymph node is seen. The liver enhances normally. Postcholecystectomy clips are seen. A dropped clip is identified near the inferior right hepatic lobe. The common bile duct is prominent in size measuring 9 mm. No intrahepatic biliary dilatation is seen. The spleen, pancreas, and adrenal glands are normal. The kidneys are normal. There is no hydronephrosis. Postoperative changes from a Adrianna-en-Y gastric bypass with are identified. The distal esophagus is mildly dilated and contains an air-fluid level. Surgical staple lines are seen surrounding a small bowel anastomosis in the mid left abdomen. There is focal dilatation of the intervening segment of bowel with wall thinning and an air-fluid level. The bowel segment measures 6.7 cm in length and is dilated up to 4.7 cm in the AP diameter. No surrounding fat stranding is seen to suggest inflammation. The bowel loops proximal and distal to the segment are normal in caliber. Retained stool is seen throughout the colon. The appendix is normal. Small foci of pneumoperitoneum are scattered throughout the abdomen consistent with the recent postoperative status. There is no evidence of loculated intra-abdominal fluid collection. No ascites is seen. Gas is seen extending into the soft tissues of the anterior abdominal wall midline incision. The bladder is partially filled. Evaluation of the pelvic contents is limited by quantum mottle. The uterus is absent. The left ovary is normal in appearance. The right ovary is absent. Mild degenerative changes are seen in the thoracolumbar spine. IMPRESSION: 1. No evidence of acute intra-abdominal abscess. 2. Focal dilatation of a short segment of bowel at the Adrianna-en-Y anastomosis with an air-fluid level. No surrounding inflammatory findings are seen to suggest an obstruction. 3. Small foci of pneumoperitoneum are consistent with the patient's recent postoperative status. RADIA
--- NOTE | 2019-09-30 05:13 | XRAY Report ---
Reason: cough Procedure Date: 09/30/2019 Accession Number: [id number] / [id number] Procedure: XR - Chest 2 View X-Ray CPT Code: 15371 Final Report FULL RESULT: EXAM: CHEST RADIOGRAPHY EXAM DATE: 09/30/2019 05:04 AM. CLINICAL HISTORY: Productive cough for 2 days. Prior hysterectomy 2 days ago. COMPARISON: None. TECHNIQUE: 2 views. FINDINGS: Lungs/Pleura: Small streaky bibasilar atelectasis and/or scarring. No significant consolidation, effusion, or definite pneumothorax. Mediastinum: Cardiac silhouette is within normal limits when accounting for lung volumes and technique. Other: Mild multilevel thoracic degenerative change. IMPRESSION: Small streaky bibasilar atelectasis and/or scarring. No acute cardiopulmonary abnormality demonstrated. RADIA
[2019-09-30] MEDS ORDERED: cefTRIAXone 1 GM VIAL IVP STA (05:29)
[2019-09-30] MEDS ORDERED: AZITHROMYCIN INJ 500 MG in SODIUM CHLORIDE 0.9% 250 ML IV STA (05:30)
[2019-09-30] MEDS ORDERED: DEXTROSE 5%-0.45% NACL 1,000 ML IV ONE (05:45)
[2019-09-30 05:57] VITALS: BP 110/57
[2019-09-30] MEDS ORDERED: BISACODYL 10 MG SUPP PR STA ×2 (06:35→06:58)
--- NOTE | 2019-09-30 08:50 | CONSULTATION NOTE ---
DATE OF SERVICE: 09/30/2019 Physician: Johnie Kong DO CHIEF COMPLAINT: Fever and abdominal pain. HISTORY OF PRESENT ILLNESS: Patient is a 44-year-old white female who had undergone a laparoscopic r ight salpingo-oophorectomy and left salpingectomy on 09/27/2019. She was kept overnight and allowed to go home the next day. She stated when she went home, her pain was a 6/10 and that has not changed . She was doing fairly well at home, but yesterday began spiking fevers of 101.9. She came to the e mergency room for evaluation. In the emergency room, she stated that her abdominal pain seemed to be worse and she was complaining of a pulling sensation in the abdomen. She stated that she had some s light drainage yesterday from the umbilical wound, but that went away. She was coughing up some brow devendra phlegm. She was passing flatus. She had not had a bowel movement, however, since Wednesday. She states that she does have problems with alternating diarrhea and constipation. Usually she states, however, she will have a bowel movement within at least 2 or 3 days. She does take stool softeners a t home and occasional Dulcolax laxatives. She states she is able to urinate, but states that it seem ed to take a longer time to urinate than usual, but that she does feel that she can empty her bladder . She denies any nausea or vomiting. In the emergency room, a CT scan was done. This showed possib ility of some early signs of pneumonia in the lower lobes of the left lung merritt. No abscesses were noted in the abdomen. There was an air fluid level near the Adrianna-en-Y anastomosis. Surgery was ask ed for an opinion on that. They did not think that there was anything wrong with that at all. Indee d that is high in the abdomen and away from the surgical field and patient is not complaining of any pain at that point. I was asked to come in and examine patient. ALLERGIES 1. BUSPIRONE. 2. ELETRIPTAN. 3. NITROFURANTOIN. 4. SULFA. 5. SULFAMETHOXAZOLE. 6. SUMATRIPTAN. 7. TRIMETHOPRIM. PRESENT MEDICATIONS: One is referred to the list in the hospital chart. PAST MEDICAL HISTORY Remarkable for 1. Sleep apnea. 2. Migraine headaches. 3. GERD. 4. What sounds to be irritable bowel syndrome. 5. Morbid obesity. 6. Renal lithiasis. 7. Anxiety. 8. Fibromyalgia. 9. Herniated disk in her neck with numbness in her left arm. PAST SURGICAL HISTORY Remarkable for 1. Gastric bypass. 2. Adrianna-en-Y. 3. Recent total laparoscopic hysterectomy with right salpingo-oophorectomy and left salpingectomy. SOCIAL STRESS HISTORY: Patient denies any use of tobacco products or street drugs. She does use alc ohol. REVIEW OF SYSTEMS GENERAL: Patient denies any recent weight changes or new changes in her general constitution. RESPIRATORY: Patient is coughing up phlegm. She denies, however, any shortness of breath or wheezin g. CARDIOVASCULAR: Patient does suffer from hypertension. She denies any chest pain, palpitations, ort hopnea. GASTROINTESTINAL: Patient does have problems with constipation and alternating diarrhea, which sound s to be somewhat irritable bowel. She does have GERD. She is slightly constipated at the present ti me. GENITOREPRODUCTIVE: As is noted above. PSYCHIATRIC: Patient does suffer from anxiety. She denies any problems with bipolar disorder or collni lucinations. PHYSICAL EXAMINATION VITAL SIGNS: On exam, patient has been afebrile throughout her stay here at the hospital. Her temper ature at this time is 37.2 orally, heart rate is 60, blood pressure is 110/57, respirations 15, and s he is oxygenated and 100% on room air. GENERAL: This is a well-developed, well-nourished 44-year-old white female in no acute distress. LUNGS: Generally clear to auscultation in all merritt. No true wheezes, rales or rhonchi were apprec iated. HEART: Regular rate and rhythm without murmur, S3, S4 gallop rhythms. ABDOMEN: The abdomen is soft and pliable. It is nontender. EXTREMITIES: There is some slight tenderness in the lower abdomen, but not more than one would expec t for her surgery. No rigidity, rebound or guarding is appreciated. All incision sites are well darren roximated. No signs of infection are noted. DERMATOLOGIC: The abdominal skin is mottled, as it was prior to surgery. No changes there are noted . EXTREMITIES: Warm and dry without edema. NEUROLOGIC: Patient is alert and oriented x3. No sensory deficits are noted. Patient has normal sp eech. ASSESSMENT 1. Postoperative fever, probably secondary to early pneumonia. 2. Constipation. 3. Postoperative day 3 from a total laparoscopic hysterectomy with right salpingo-oophorectomy and l eft salpingectomy. PLAN: Patient was given a course of IV antibiotics here. She will continue on Zithromax. When she goes home and followup with her primary care physician for the pneumonia. She will be given a Dulcol ax suppository here to get her bowels moving and will take MiraLax when she goes home to continue to get them to move. She will followup with us in the office for her regular visit unless she worsens a nd then she will call so she can be seen sooner. TD: 09/30/2019 06:40
== END 2019-09-30 07:13 | disposition home or self-care (01) ==
LOC: ED 23:39
DX: J18.9 Pneumonia, unspecified organism (principal); R10.31 Right lower quadrant pain; K59.00 Constipation, unspecified; Z98.890 Other specified postprocedural states; Z90.710 Acquired absence of both cervix and uterus; Z87.891 Personal history of nicotine dependence; Z79.82 Long term (current) use of aspirin; Z98.84 Bariatric surgery status
CPT/HCPCS: 36415; 71046; 74177; 80053; 81001; 83605; 83690; 85025; 85651; 86140; 87040; 96365; 96375; 96376; 99284; A9270; J1170; Q9967; 81003; 87086

== ENCOUNTER 2019-10-06 14:58 | Emergency (ER) | payer MEDICAID ==
--- NOTE | 2019-10-06 16:02 | ED Physician Documentation ---
PD HPI FEMALE - Stated complaint Stated Complaint: POST OP COMPLICATIONS - Chief complaint Chief Complaint: Abd Pain - History obtained from History obtained from: Patient - History of Present Illness Timing - onset: How many days ago (9) Timing - duration: Days (9) Timing - details: Gradual onset (She had transvaginal laparoscopic-assisted hysterectomy with right oophorectomy and some lysis of adhesions [address] morrow. She states she been having some lower abdominal and right abdominal pain since the time of surgery. She was prescribed some tramadol I believe postoperatively. She was seen 2 or 3 days postop here in the emergency room for the pains. She had normal labs and a CT scan that did not show any signs of free fluid or localized infection. There was mild hemoperitoneum consistent with the timing postop. She was prescribed oxycodone for the pains. She continued with the pain and discomfort and was seen by Dr. Kong in the office 3 days ago with a normal pelvic exam. She was continued with some oxycodone pain medicines. She states she is continued with the pains but had been improved with the medication. She is having worse pain today without any fevers. She also noticed some vaginal bleeding today and is concerned her.) Associated symptoms: Abdominal pain (lower abd and right lower abd), Vaginal bleeding (spotting). 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 denies: Abdominal Swelling, Vomiting, Diarrhea : reports: Vaginal bleeding (today, spotting red blood). 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 Has numbness in left arm.) Derm: None - Past Surgical History Past Surgical History: No - Present Medications Home Medications: Ambulatory Orders Medication Instructions Recorded Confirmed Albuterol Sulfate [Proair 2 puffs IH Q4H PRN 05/30/19 09/27/19 Respiclick] Cephalexin [Keflex] 500 mg PO DAILY 05/30/19 09/27/19 Hydrochlorothiazide 25 mg PO BID 05/30/19 09/27/19 Ketorolac [Toradol] 10 mg PO Q6H PRN 05/30/19 09/27/19 Loratadine 10 mg PO DAILY 05/30/19 09/27/19 Omeprazole 40 mg PO DAILY 05/30/19 09/27/19 Potassium Chloride 10 meq PO DAILY PRN #10 tablet.er 07/19/19 09/27/19 Apple Cider Vinegar 450 mg PO DAILY 09/26/19 Aspirin [Aspirin EC] 81 mg PO DAILY 09/26/19 09/27/19 Biotin 5,000 mcg PO DAILY 09/26/19 09/27/19 Butalb/Acetaminophen/Caffeine 1 - 2 each PO ONCE PRN 09/26/19 09/27/19 [Fioricet 50-300-40 mg Capsule] Calcium Citrate 1,000 mg PO DAILY 09/26/19 09/27/19 Cholecalciferol (Vitamin D3) 2,000 unit PO DAILY 09/26/19 09/27/19 [Vitamin D3] Cyanocobalamin (Vitamin B-12) 2,500 mcg SL DAILY 09/26/19 09/26/19 [Vitamin B-12] Duloxetine HCl 30 mg PO DAILY 09/26/19 09/27/19 Ferrous Sulfate 325 mg PO DAILY 09/26/19 09/27/19 Fluconazole 200 mg PO ONCE PRN 09/26/19 09/27/19 Gabapentin 300 mg PO BID 09/26/19 09/27/19 Magnesium Oxide [Magnesium] 500 mg PO DAILY 09/26/19 09/27/19 Melatonin 10 mg PO QPM 09/26/19 09/26/19 [place]-3/Dha/Epa/Fish Oil [Fish Oil 1 each PO DAILY 09/26/19 09/27/19 1,000 mg Softgel] Phenazopyridine HCl 200 mg PO TID PRN 09/26/19 09/26/19 Prednisone 5 mg PO ONCE PRN 09/26/19 09/27/19 Tizanidine HCl 4 mg PO TID 09/26/19 09/27/19 Phenazopyridine HCl [Pyridium] 200 mg PO PRN PRN 09/27/19 09/27/19 cloNIDine [Catapres] 0.1 mg PO ONCE 09/27/19 09/27/19 Amox/Clav 875/125 [Augmentin] 1 each PO Q12H #20 tablet 09/30/19 Azithromycin [Zithromax] 250 mg PO DAILY #6 tablet 09/30/19 Oxycodone HCl/Acetaminophen 1 - 2 each PO Q6H PRN #10 tablet 09/30/19 [Percocet 5-325 mg Tablet] Docusate Sodium 100 mg PO DAILY #30 capsule 10/06/19 Ondansetron Odt [Zofran] 4 mg TL Q6H PRN #10 tablet 10/06/19 Oxycodone HCl/Acetaminophen 1 each PO Q6H PRN #20 tablet 10/06/19 [Percocet 7.5-325 mg Tablet] - Allergies Allergies/Adverse Reactions: Allergies Allergy/AdvReac Type Severity Reaction Status Date / Time buspirone Allergy Emesis, Verified 10/06/19 15:10 diarrhea eletriptan [From Relpax] Allergy Anaphylaxis Verified 10/06/19 15:10 nitrofurantoin Allergy Itching Verified 10/06/19 15:10 [From Macrobid] Sulfa (Sulfonamide Allergy Itching Verified 10/06/19 15:10 Antibiotics) sulfamethoxazole Allergy Itching Verified 10/06/19 15:10 [From Bactrim] sumatriptan [From Imitrex] Allergy Anaphylaxis Verified 10/06/19 15:10 trimethoprim [From Bactrim] Allergy Itching Verified 10/06/19 15:10 - Social History Does the pt smoke?: No Smoking Status: Former smoker Does the pt drink ETOH?: Yes Does the pt have substance abuse?: No - Immunizations Immunizations are current?: Yes - POLST Patient has POLST: No PD ED PE NORMAL - Vitals Vital signs reviewed: Yes - General General: Alert and oriented X 3, Well developed/nourished, Other (Appears uncomfortable and is slowing holding lower abdomen and right lower abdomen.) - Neck Neck: Supple, no meningeal sign, No adenopathy - Cardiac Cardiac: RRR, No murmur - Respiratory Respiratory: Clear bilaterally - Abdomen Abdomen: Normal bowel sounds, Soft, Non distended, No organomegaly, Other (Tender in the lower abdomen and suprapubic and right lower quadrant area without any guarding or percussion tenderness. 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 She is status post hysterectomy. The vaginal cuff shows a slight bit of redness and trace blood at the cuff area. There is no surrounding redness no significant bleeding and no purulence. Does not appear dehisced.) - Rectal Rectal: Deferred - Back Back: No CVA TTP - Derm Derm: Normal color, Warm and dry - Neuro Neuro: Alert and oriented X 3, No motor deficit, Normal speech Results - Vitals Vitals: Vital Signs - 24 hr 10/06/19 10/06/19 15:04 17:39 Temperature 37 C Heart Rate 50 L 58 L Respiratory 18 18 Rate Blood Pressure 125/72 139/65 H O2 Saturation 100 99 Oxygen O2 Source Room air - Labs Labs: Laboratory Tests 10/06/19 10/06/19 10/06/19 16:12 16:12 16:25 WBC 5.6 RBC 4.06 L Hgb 12.4 Hct 39.7 MCV 97.8 MCH 30.5 MCHC 31.2 L RDW 12.7 Plt Count 210 MPV 10.3 Neut # (Auto) 3.5 Lymph # (Auto) 1.4 L [facility] # (Auto) 0.5 Eos # (Auto) 0.2 Baso # (Auto) 0.0 Absolute Nucleated RBC 0.00 Nucleated RBC % 0.0 Sodium 139 Potassium 4.0 Chloride 104 Carbon Dioxide 24 Anion Gap 11.0 BUN 10 Creatinine 0.9 Estimated GFR (MDRD) 68 L Glucose 91 Calcium 9.5 Total Bilirubin 0.5 AST 17 ALT 14 Alkaline Phosphatase 56 Total Protein 7.0 Albumin 4.1 Globulin 2.9 Albumin/Globulin Ratio 1.4 Lipase 30 Urine Color YELLOW Urine Clarity CLEAR Urine pH 7.0 Ur Specific [place] 1.020 Urine Protein NEGATIVE Urine Glucose (UA) NEGATIVE Urine Ketones TRACE Urine Occult Blood MODERATE H Urine Nitrite NEGATIVE Urine Bilirubin NEGATIVE Urine Urobilinogen 0.2 (NORMAL) Ur Leukocyte Esterase TRACE H Urine RBC 6-10 H Urine WBC 4-5 Ur Squamous Epith Cells MOD Squamous H Urine Bacteria None Seen Urine Mucus Few Strands Ur Microscopic Review INDICATED Urine Culture Comments NOT INDICATED PD MEDICAL DECISION MAKING - ED course Complexity details: reviewed old records, reviewed results, considered differential, d/w patient, d/w multi site leasing consultant (I talked with Dr. Evans is on- call for gynecology. She felt the work-up was adequate at this point. The bleeding from the cough is reasonable with the idea of a small wet scab having come loose. There is no sign of dehiscence or infection. She did not feel independently in need for any repeated imaging and I concur with this. To prescribe some more pain medicine for the weekend and to follow-up Wednesday in the office.) ED course: Initially there was difficulty getting the IV started so the patient was given IM medication for pain and inflammation. This provided moderate improvement. Nursing then did get a an IV started to see given fluids and a bit more medicin e. Departure - Departure Clinical Impression: Status post hysterectomy with oophorectomy, Right lower quadrant abdominal pain, Vaginal spotting Condition: Stable Record reviewed to determine appropriate education?: Yes Follow-Up: Jacinto Quezada MD [Primary Care Provider] - Ivan Townsend MD [Provider Admit Priv/Credential] - Prescriptions: Docusate Sodium 100 mg PO DAILY #30 capsule Ondansetron Odt [Zofran] 4 mg TL Q6H PRN #10 tablet PRN Reason: Nausea / Vomiting Oxycodone HCl/Acetaminophen [Percocet 7.5-325 mg Tablet] 1 each PO Q6H PRN #20 tablet PRN Reason: Pain Comments: Small frequent fluids. Ondansetron if needed for nausea. Tylenol if needed for mild or medium pain. Oxycodone if needed for worse pain every 6 hours. Daily stool softener to avoid constipation. Follow-up with your advanced developer this coming week and call early Wednesday for an appointment time. If one is not already planned. Return if worsening symptoms in particular the vaginal bleeding or if you develop fevers signs of infection or repetitive vomiting. At this point some vaginal bleeding is common due to loosening of the scab at the vaginal cuff postoperatively. It should only be for a couple of days.
[2019-10-06 16:18] LABS: BASOPHILS % (AUTO) 0.5 %; EOSINOPHILS # (AUTO) 0.2 10^3/uL (0.0-0.7); EOSINOPHILS % (AUTO) 3.2 %; HGB - HEMOGLOBIN 12.4 g/dL (12.0-16.0); LYMPHOCYTES # (AUTO) 1.4 10^3/uL (1.5-3.5); LYMPHOCYTES % (AUTO) 25.1 %; MEAN CORPUSCULAR HEMOGLOBIN 30.5 pg (27.0-31.0); MEAN CORPUSCULAR HGB CONC 31.2 g/dL (32.0-36.0); MEAN CORPUSCULAR VOLUME 97.8 fL (81.0-99.0); MEAN PLATELET VOLUME 10.3 fL (7.9-10.8); MONOCYTES # (AUTO) 0.5 10^3/uL (0.0-1.0); MONOCYTES % (AUTO) 8.4 %; NEUTROPHILS # (AUTO) 3.5 10^3/uL (1.5-6.6); NEUTROPHILS % (AUTO) 62.4 %; PLT - PLATELET COUNT 210 10^3/uL (130-450); RED BLOOD COUNT 4.06 10^6/uL (4.20-5.40); RED CELL DISTRIBUTION WIDTH 12.7 % (12.0-15.0); WHITE BLOOD COUNT 5.6 x10^3/uL (4.8-10.8)
[2019-10-06 16:30] LABS: ALBUMIN 4.1 g/dL (3.2-5.5); ALBUMIN/GLOBULIN RATIO 1.4 (1.0-2.2); BILIRUBIN,TOTAL 0.5 mg/dL (0.2-1.0); CALCIUM 9.5 mg/dL (8.5-10.3); CREATININE 0.9 mg/dL (0.4-1.0)
[2019-10-06 16:37] LABS: BILIRUBIN,URINE NEGATIVE (NEGATIVE); GLUCOSE, URINE (UA) NEGATIVE (NEGATIVE); KETONES,URINE (UA) TRACE mg/dL (NEGATIVE); LEUKOCYTE ESTERASE, URINE TRACE (NEGATIVE); NITRITE,URINE NEGATIVE (NEGATIVE); OCCULT BLOOD,URINE MODERATE (NEGATIVE); PROTEIN,URINE NEGATIVE (NEGATIVE); UROBILINOGEN,URINE 0.2 (NORMAL) E.U./dL (NORMAL)
[2019-10-06] MEDS ORDERED: HYDROmorphone 2 MG/ML VIAL IVP STA (16:44)
[2019-10-06] MEDS ORDERED: ONDANSETRON 4 MG/2 ML VIAL IVP STA ×2 (16:44→18:28)
[2019-10-06] MEDS ORDERED: KETOROLAC 30 MG/ML VIAL IVP STA (16:44)
[2019-10-06] MEDS ORDERED: SODIUM CHLORIDE 0.9% 1,000 ML IV ONE (16:45)
[2019-10-06 16:48] LABS: BACTERIA,URINE None Seen /HPF (None Seen); CLARITY,URINE CLEAR (CLEAR); MUCUS,URINE Few Strands; SQUAMOUS EPITHELIAL CELL,UR MOD Squamous (<= Few)
[2019-10-06] MEDS ORDERED: KETOROLAC 60 MG/2 ML VIAL IM STA (17:20)
[2019-10-06] MEDS ORDERED: HYDROmorphone 1 MG/ML CARPUJECT IM STA ×2 (17:20→17:53)
[2019-10-06] MEDS ORDERED: DEXAMETHASONE 10 MG/ML VIAL IVP STA (18:41)
[2019-10-06 18:56] VITALS: BP 129/61
[2019-10-06] MEDS ORDERED: diphenhydrAMINE INJ 50 MG/ML VIAL IVP STA (19:08)
== END 2019-10-06 19:56 | disposition home or self-care (01) ==
LOC: ED 14:58
DX: R10.31 Right lower quadrant pain (principal); N93.9 Abnormal uterine and vaginal bleeding, unspecified; Z98.890 Other specified postprocedural states; Z87.891 Personal history of nicotine dependence
CPT/HCPCS: 36415; 80053; 81001; 83690; 85025; 96372; 96374; 96375; 99284; 99285; J1170; J1200; 81003; 87086